=== PATIENT | female | born 1990 | race Caucasian/White ===

== ENCOUNTER 2016-11-14 16:22 | Emergency (ER) | payer BC ==
[~2016-11-14] VITALS: Ht 167.6 cm; Wt 77.1 kg
[~2016-11-14 16:22] MED LIST: ADDERALL30 MG PO; AMOXICILLIN500 MG PO; ATIVAN1 MG PO; AUGMENTIN 875875 MG PO; HYDROCODONE BIT1 T11 PO; MOTRIN600 MG PO; ULTRAM50 MG PO; VALTREX1 GM PO; VICO10300 PO; ZESTRIL,PRINIVI10 MG PO; ZITHROMAX Z PA250 MG PO; ZOFRAN ODT4 MG SL
[2016-11-14 16:28] VITALS: BP 153/88
[2016-11-14] MEDS ORDERED: VALIUM5 MG PO (16:30)
[2016-11-14 16:53] LABS: HEMATOCRIT 40.3 % (37.0-47.0); HEMOGLOBIN 12.8 g/dl (12.0-16.0); MEAN CELL VOLUME 83.3 fl (81.0-99.0); MEAN CORPUSCULAR HGB 26.4 pg (27.0-31.0); MEAN CORPUSCULAR HGB CONC 31.8 g/dl (33.0-37.0); MEAN PLATELET VOLUME 9.7 fl (9.6-12.3); PLATELET COUNT AUTOMATED 533 10*3/uL (130-400); RED BLOOD COUNT 4.84 10*6/uL (4.10-5.10); RED CELL DISTRI WIDTH 15.9 % (0-14.5); WHITE BLOOD COUNT 14.3 10*3/uL (4.8-10.8)
[2016-11-14 17:10] LABS: BILIRUBIN, TOTAL 0.3 mg/dl (0.2-1.0); BUN 14 mg/dl (7-24); CARBON DIOXIDE 22 mmol/L (21-32); CHLORIDE 104 mmol/L (98-107); EST GLOM FILT AFRICAN AMERICAN > 60 ml/min; GLUCOSE 86 mg/dL (65-99); POTASSIUM 3.8 mmol/L (3.5-5.1); SGOT/AST 21 IU/L (3-35); SGPT/ALT 24 U/L (12-78); SODIUM 139 mmol/L (136-145); TOTAL PROTEIN 8.3 gm/dL (6.4-8.2)
[2016-11-14 17:11] LABS: ALKALINE PHOSPHATASE 105 U/L (45-117)
[2016-11-14 17:24] LABS: BASOPHIL # 0.3 10*3/uL (0-0.1); BASOPHILS 2 % (0-1); EOSINOPHIL # 0.7 10*3/uL (0-0.4); EOSINOPHILS 5 % (1-4); LYMPHOCYTE # 1.9 10*3/uL (1.3-4.4); MONOCYTE # 1.9 10*3/uL (0.1-1.0); NEUTROPHIL # 9.6 10*3/uL (2.3-7.9); NEUTROPHILS 67 % (47-73); TOTAL CELLS COUNTED 100 #CELLS
[2016-11-14 17:25] LABS: OVALOCYTES FEW; PLATELET SUFFICIENCY HIGH (NORMAL); POLYCHROMASIA SLIGHT
[2016-11-14 17:26] LABS: HYPOCHROMIA SLIGHT; TARGET CELLS FEW
[2016-11-14] MEDS ORDERED: ULTRAM50 MG PO (17:51)
[2016-11-14] MEDS ORDERED: ZOFRAN ODT4 MG SL (17:51)
[2016-11-14] MEDS ORDERED: TAMIFLU 75MG CA75 MG PO (17:51)
== END 2016-11-14 17:57 | disposition home or self-care (01) ==
LOC: ED 16:22
PROVIDERS: Nurse Practitioner Family
DX: J09.X9 Influenza due to identified novel influenza A virus with other manifestations (principal); H66.91 Otitis media, unspecified, right ear; Z79.899 Other long term (current) drug therapy

== ENCOUNTER → 2017-06-26 | Outpatient (CLI) | payer OTHER ==
[~2017-06-26] MED LIST changes: +TAMIFLU 75MG CA75 MG PO; +VALIUM5 MG PO
[2017-06-26 07:07] LABS: BASO # 0.1 10*3/uL (0.0-0.1); BASO % 0.8 % (0.0-1.0); EOS # 0.2 10*3/uL (0.0-0.4); HEMATOCRIT 35.2 % (37.0-47.0); HEMOGLOBIN 10.9 g/dl (12.0-16.0); LYMPH % 44.9 % (27.0-41.0); MEAN CELL VOLUME 82.8 fl (81.0-99.0); MEAN CORPUSCULAR HGB 25.6 pg (27.0-31.0); MEAN PLATELET VOLUME 9.9 fl (9.6-12.3); MONO # 0.9 10*3/uL (0.1-1.0); MONO % 8.2 % (3.0-9.0); NEUT # 4.9 10*3/uL (2.3-7.9); NEUT % 43.8 % (47.0-73.0); PLATELET COUNT AUTOMATED 659 10*3/uL (130-400); RED BLOOD COUNT 4.25 10*6/uL (4.10-5.10); RED CELL DISTRI WIDTH 16.3 % (0-14.5); WHITE BLOOD COUNT 11.1 10*3/uL (4.8-10.8)
[2017-06-26 07:35] LABS: CHLORIDE 103 mmol/L (98-107); POTASSIUM 3.7 mmol/L (3.5-5.1); SODIUM 137 mmol/L (136-145)
[2017-06-26 07:44] LABS: ALBUMIN 3.5 gm/dl (3.1-4.5); ALKALINE PHOSPHATASE 92 U/L (45-117); BUN 12 mg/dl (7-24); CHOLESTEROL 146 mg/dL (<200); CREATININE 0.55 mg/dL (0.55-1.02); FREE T4 1.22 ng/dl (0.76-1.46); HDL CHOLESTEROL 51 mg/dl (40-60); LDL CHOLESTEROL 80 mg/dL (9-159); SGOT/AST 19 IU/L (3-35); SGPT/ALT 23 U/L (12-78); TRIGLYCERIDES 75 mg/dl (<150); VLDL CHOLESTEROL 15 mg/dL (6-40)
[2017-06-26 07:57] LABS: VITAMIN D, 25-HYDROXY 34.5 ng/mL (30-100)
[2017-06-26 08:00] LABS: TOTAL PROTEIN 8.3 gm/dL (6.4-8.2)
[2017-06-28 14:11] LABS: t-TRANSGLUTAMINASE (tTG) IGA <2 U/mL (0-3)
== END | disposition home or self-care (01) ==
LOC: LAB 06:25
PROVIDERS: Internal Medicine
DX: Z13.21 Encounter for screening for nutritional disorder (principal); Z13.1 Encounter for screening for diabetes mellitus; Z13.220 Encounter for screening for lipoid disorders; R79.89 Other specified abnormal findings of blood chemistry

== ENCOUNTER 2017-09-02 10:31 | Emergency (ER) | payer OTHER ==
[~2017-09-02] VITALS: Ht 165.1 cm; Wt 77.1 kg
[2017-09-02 11:00] VITALS: BP 128/77
[2017-09-02 11:50] LABS: BASO # 0.1 10*3/uL (0.0-0.1); BASO % 1.2 % (0.0-1.0); EOS # 0.2 10*3/uL (0.0-0.4); EOS % 1.7 % (1.0-4.0); HEMATOCRIT 37.1 % (37.0-47.0); LYMPH # 3.8 10*3/uL (1.3-4.4); LYMPH % 31.7 % (27.0-41.0); MEAN CELL VOLUME 80.3 fl (81.0-99.0); MEAN CORPUSCULAR HGB CONC 32.3 g/dl (33.0-37.0); MEAN PLATELET VOLUME 9.2 fl (9.6-12.3); MONO # 1.1 10*3/uL (0.1-1.0); MONO % 8.9 % (3.0-9.0); NEUT # 6.8 10*3/uL (2.3-7.9); NEUT % 56.3 % (47.0-73.0); PLATELET COUNT AUTOMATED 570 10*3/uL (130-400); RED BLOOD COUNT 4.62 10*6/uL (4.10-5.10); RED CELL DISTRI WIDTH 15.5 % (0-14.5)
[2017-09-02 12:05] LABS: ALBUMIN 3.8 gm/dl (3.1-4.5); ALKALINE PHOSPHATASE 100 U/L (45-117); BUN 14 mg/dl (7-24); CHLORIDE 106 mmol/L (98-107); CREATININE 0.63 mg/dL (0.55-1.02); LIPASE 152 U/L (73-393); SGOT/AST 17 IU/L (3-35); SGPT/ALT 24 U/L (12-78); SODIUM 138 mmol/L (136-145); TOTAL PROTEIN 8.6 gm/dL (6.4-8.2)
[2017-09-02 13:14] LABS: BILIRUBIN NEGATIVE (NEGATIVE); BLOOD TRACE-LYSED (NEGATIVE); CLARITY CLEAR (CLEAR); COLOR YELLOW (YELLOW); GLUCOSE NEGATIVE (NEGATIVE); KETONE NEGATIVE (NEGATIVE); LEUKO ESTERASE NEGATIVE (NEGATIVE); NITRITE NEGATIVE (NEGATIVE); UROBILINOGEN 0.2 E.U./dl (0.2-1.0)
[2017-09-02 13:35] LABS: BACTERIA 2+
[2017-09-02] MEDS ORDERED: ZANTAC 150150 MG PO (15:19)
[2017-09-02] MEDS ORDERED: CARAFATE1 G1 PO (15:19)
[2017-09-02] MEDS ORDERED: PROTONIX40 MG PO (15:19)
[2017-09-02] MEDS ORDERED: ZOFRAN4 MG PO (15:19)
== END 2017-09-02 15:22 | disposition home or self-care (01) ==
LOC: ED 10:31
PROVIDERS: Nurse Practitioner Family
DX: R10.84 Generalized abdominal pain (principal); R03.0 Elevated blood-pressure reading, without diagnosis of hypertension; Z79.899 Other long term (current) drug therapy; Z90.49 Acquired absence of other specified parts of digestive tract; Z90.81 Acquired absence of spleen

== ENCOUNTER 2018-03-04 19:42 | Emergency (ER) | payer OTHER ==
[~2018-03-04] VITALS: Ht 165.1 cm; Wt 72.6 kg
[~2018-03-04 19:42] MED LIST changes: +CARAFATE1 G1 PO; +PROTONIX40 MG PO; +ZANTAC 150150 MG PO; +ZOFRAN4 MG PO
[2018-03-04] MEDS ORDERED: ADDERALL 20 MG20 MG PO (20:00)
[2018-03-04] MEDS ORDERED: VISTARIL50 MG PO (20:01)
[2018-03-04] MEDS ORDERED: RIFAMPIN600 MG PO (20:02)
[2018-03-04] MEDS ORDERED: VALTREX500 MG PO (20:02)
[2018-03-04] MEDS ORDERED: XIFAXAN550 MG PO (20:03)
[2018-03-04] MEDS ORDERED: NUVARING VAGIN1 EACH V (20:04)
[2018-03-04 20:40] LABS: BASO # 0.1 10*3/uL (0.0-0.1); BASO % 0.8 % (0.0-1.0); EOS # 0.1 10*3/uL (0.0-0.4); EOS % 0.7 % (1.0-4.0); HEMATOCRIT 34.2 % (37.0-47.0); HEMOGLOBIN 10.5 g/dl (12.0-16.0); LYMPH # 4.6 10*3/uL (1.3-4.4); MEAN CELL VOLUME 78.3 fl (81.0-99.0); MEAN CORPUSCULAR HGB CONC 30.7 g/dl (33.0-37.0); MEAN PLATELET VOLUME 9.5 fl (9.6-12.3); MONO # 1.1 10*3/uL (0.1-1.0); MONO % 9.5 % (3.0-9.0); NEUT # 5.3 10*3/uL (2.3-7.9); NEUT % 47.8 % (47.0-73.0); PLATELET COUNT AUTOMATED 491 10*3/uL (130-400); RED BLOOD COUNT 4.37 10*6/uL (4.10-5.10); RED CELL DISTRI WIDTH 17.7 % (0-14.5); WHITE BLOOD COUNT 11.2 10*3/uL (4.8-10.8)
[2018-03-04 20:55] LABS: ALBUMIN 3.5 gm/dl (3.1-4.5); ALKALINE PHOSPHATASE 89 U/L (45-117); BUN 24 mg/dl (7-24); CHLORIDE 103 mmol/L (98-107); CREATININE 0.71 mg/dL (0.55-1.02); LIPASE 166 U/L (73-393); POTASSIUM 3.6 mmol/L (3.5-5.1); SGOT/AST 14 IU/L (3-35); SGPT/ALT 19 U/L (12-78); SODIUM 138 mmol/L (136-145); TOTAL PROTEIN 7.9 gm/dL (6.4-8.2)
[2018-03-04 21:00] LABS: ACT PARTIAL THROMBO TIME 23.3 SECONDS (20.8-31.5); INTERNATIONAL NORM RATIO 0.9 (2.0-3.5)
[2018-03-04 21:04] LABS: TROPONIN I < 0.015 ng/ml (<0.045)
[2018-03-04 21:06] LABS: BILIRUBIN NEGATIVE (NEGATIVE); BLOOD 1+ (NEGATIVE); CLARITY SL CLOUDY (CLEAR); COLOR YELLOW (YELLOW); GLUCOSE NEGATIVE (NEGATIVE); KETONE NEGATIVE (NEGATIVE); LEUKO ESTERASE NEGATIVE (NEGATIVE); NITRITE NEGATIVE (NEGATIVE); PH 5.5 (5.0-9.0); SPECIFIC GRAVITY >= 1.030 (1.005-1.030); UROBILINOGEN 0.2 E.U./dl (0.2-1.0)
[2018-03-04 21:22] LABS: BACTERIA 1+; EPITHELIAL CELLS TNTC; MUCOUS TRACE
[2018-03-04 23:07] VITALS: BP 135/82
== END 2018-03-04 23:08 | disposition home or self-care (01) ==
LOC: ED 19:42
PROVIDERS: Nurse Practitioner Family
DX: R25.2 Cramp and spasm (principal); F10.10 Alcohol abuse, uncomplicated; Z79.899 Other long term (current) drug therapy; Z90.49 Acquired absence of other specified parts of digestive tract

== ENCOUNTER → 2018-05-06 | Outpatient (CLI) | payer OTHER ==
[~2018-05-06] MED LIST changes: +ADDERALL 20 MG20 MG PO; +NUVARING VAGIN1 EACH V; +RIFAMPIN600 MG PO; +VALTREX500 MG PO; +VISTARIL50 MG PO; +XIFAXAN550 MG PO
== END | disposition home or self-care (01) ==
LOC: US 16:50
DX: Z34.81 Encounter for supervision of other normal pregnancy, first trimester (principal); Z3A.08 8 weeks gestation of pregnancy

== ENCOUNTER → 2018-10-31 | Outpatient (CLI) | payer OTHER | END | disposition home or self-care (01) | LOC: LAB 19:25 | DX: Z34.80 Encounter for supervision of other normal pregnancy, unspecified trimester (principal) ==

== ENCOUNTER 2019-04-13 11:43 | Emergency (ER) | payer OTHER ==
[~2019-04-13] VITALS: Ht 167.6 cm; Wt 81.6 kg
--- NOTE | ~2019-04-13 | EKG ---
[place], [place] ELECTROCARDIOGRAM REPORT NAME: ANDRE RUIZ UNIT #: [id number] ROOM: DOCTOR: EPIPHANY DRAFT REPORT BIRTHDATE: [birth year] [facility] Test Date: 2019-04-13 Test Time: 12:23:30 Pat Name: ANDRE RUIZ Department: ER Room: Gender: F Escrow Processor: Coby Macedo : 1990 Requested By: VALENTE JACOBO DNP Order Number: [id number] Reading MD: Lucina Franco MD Measurements Intervals [place] Rate: 131 P: 70 WV: 135 QRS: 9 QRSD: 100 T: -32 QT: 338 QTc: 499 Interpretive Statements Sinus tachycardia Low voltage, precordial leads Borderline T abnormalities, diffuse leads Prolonged QT interval Electronically Signed On 04-19-2019 6:55:13 PDT by Lucina Franco MD CM:EKGRPT:ELECTROCARDIOGRAM REPORT [id number] VALENTE JACOBO DNP EPIPHANY DRAFT REPORT VALENTE JACOBO DNP
[2019-04-13 12:46] LABS: HEMATOCRIT 43.6 % (37.0-47.0); HEMOGLOBIN 13.9 g/dl (12.0-16.0); MEAN CELL VOLUME 88.3 fl (81.0-99.0); MEAN CORPUSCULAR HGB 28.1 pg (27.0-31.0); MEAN CORPUSCULAR HGB CONC 31.9 g/dl (33.0-37.0); MEAN PLATELET VOLUME 9.7 fl (9.6-12.3); PLATELET COUNT AUTOMATED 526 10*3/uL (130-400); RED BLOOD COUNT 4.94 10*6/uL (4.10-5.10); RED CELL DISTRI WIDTH 14.3 % (0-14.5)
[2019-04-13 12:49] LABS: WHITE BLOOD COUNT 37.7 10*3/uL (4.8-10.8)
[2019-04-13 12:58] LABS: ACT PARTIAL THROMBO TIME 27.9 SECONDS (20.0-32.1); INTERNATIONAL NORM RATIO 0.9 (2.0-3.5)
[2019-04-13 13:00] LABS: ALBUMIN 3.7 gm/dl (3.1-4.5); ALKALINE PHOSPHATASE 142 U/L (45-117); BUN 15 mg/dl (7-24); CHLORIDE 102 mmol/L (98-107); CREATININE 0.81 mg/dL (0.55-1.02); LIPASE 81 U/L (73-393); POTASSIUM 3.8 mmol/L (3.5-5.1); SGOT/AST 14 IU/L (3-35); SGPT/ALT 27 U/L (12-78); SODIUM 136 mmol/L (136-145); TOTAL PROTEIN 8.7 gm/dL (6.4-8.2)
[2019-04-13 13:01] LABS: TROPONIN I < 0.015 ng/ml (<0.045)
[2019-04-13 13:08] LABS: BASOPHILS 1 % (0-1); TOTAL CELLS COUNTED 100 #CELLS
[2019-04-13 13:09] LABS: PLATELET SUFFICIENCY NORMAL (NORMAL); POLYCHROMASIA SLIGHT
[2019-04-13 13:10] LABS: BURR CELLS FEW
[2019-04-13 14:24] LABS: BILIRUBIN NEGATIVE (NEGATIVE); BLOOD NEGATIVE (NEGATIVE); CLARITY CLEAR (CLEAR); COLOR YELLOW (YELLOW); GLUCOSE NEGATIVE (NEGATIVE); KETONE NEGATIVE (NEGATIVE); LEUKO ESTERASE NEGATIVE (NEGATIVE); NITRITE NEGATIVE (NEGATIVE); PH 7.5 (5.0-9.0); SPECIFIC GRAVITY 1.015 (1.005-1.030); UROBILINOGEN 0.2 E.U./dl (0.2-1.0)
[2019-04-13 14:36] LABS: BACTERIA TRACE; MUCOUS 2+
[2019-04-13 17:51] VITALS: BP 115/68
== END 2019-04-13 18:00 | disposition short-term general hospital (02) ==
LOC: ED 11:43
PROVIDERS: Nurse Practitioner Family
DX: A41.9 Sepsis, unspecified organism (principal); J03.00 Acute streptococcal tonsillitis, unspecified; R19.7 Diarrhea, unspecified; H92.03 Otalgia, bilateral; Z79.899 Other long term (current) drug therapy; Z90.49 Acquired absence of other specified parts of digestive tract

== ENCOUNTER 2019-09-01 19:37 | Emergency (ER) | payer OTHER ==
[~2019-09-01] VITALS: Ht 165.1 cm; Wt 81.6 kg
--- NOTE | ~2019-09-01 | EKG ---
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
[2019-09-01 20:00] VITALS: BP 122/77
[2019-09-01 20:27] LABS: HEMATOCRIT 40.9 % (37.0-47.0); HEMOGLOBIN 12.8 g/dl (12.0-16.0); MEAN CORPUSCULAR HGB 27.5 pg (27.0-31.0); MEAN CORPUSCULAR HGB CONC 31.3 g/dl (33.0-37.0); MEAN PLATELET VOLUME 9.7 fl (9.6-12.3); PLATELET COUNT AUTOMATED 512 10*3/uL (130-400); RED BLOOD COUNT 4.65 10*6/uL (4.10-5.10); RED CELL DISTRI WIDTH 13.9 % (0-14.5)
[2019-09-01 20:46] LABS: TOTAL CELLS COUNTED 100 #CELLS
[2019-09-01 20:47] LABS: ALBUMIN 3.7 gm/dl (3.1-4.5); ALKALINE PHOSPHATASE 121 U/L (45-117); BUN 15 mg/dl (7-24); CHLORIDE 106 mmol/L (98-107); CREATININE 0.74 mg/dL (0.55-1.02); PLATELET SUFFICIENCY HIGH (NORMAL); SGOT/AST 13 IU/L (3-35); SGPT/ALT 18 U/L (12-78); SODIUM 137 mmol/L (136-145); TOTAL PROTEIN 8.2 gm/dL (6.4-8.2); TROPONIN I < 0.015 ng/ml (<0.045)
== END 2019-09-01 21:33 | disposition home or self-care (01) ==
LOC: ED 19:37
PROVIDERS: Emergency Medicine Emergency Medical Services
DX: H53.9 Unspecified visual disturbance (principal); R20.2 Paresthesia of skin; R20.0 Anesthesia of skin; Z79.899 Other long term (current) drug therapy

== ENCOUNTER 2019-09-03 03:49 | Emergency (ER) | payer OTHER ==
[~2019-09-03] VITALS: Ht 165.1 cm
--- NOTE | ~2019-09-03 | EKG ---
[place], [place] ELECTROCARDIOGRAM REPORT NAME: ANDRE RUIZ UNIT #: [id number] ROOM: DOCTOR: EPIPHANY DRAFT REPORT BIRTHDATE: [address] 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
[2019-09-03 04:22] LABS: HEMATOCRIT 41.8 % (37.0-47.0); MEAN CELL VOLUME 89.3 fl (81.0-99.0); MEAN CORPUSCULAR HGB 27.8 pg (27.0-31.0); MEAN CORPUSCULAR HGB CONC 31.1 g/dl (33.0-37.0); MEAN PLATELET VOLUME 9.9 fl (9.6-12.3); PLATELET COUNT AUTOMATED 489 10*3/uL (130-400); RED BLOOD COUNT 4.68 10*6/uL (4.10-5.10); RED CELL DISTRI WIDTH 13.8 % (0-14.5); WHITE BLOOD COUNT 15.3 10*3/uL (4.8-10.8)
[2019-09-03 04:37] LABS: ALBUMIN 3.4 gm/dl (3.1-4.5); ALKALINE PHOSPHATASE 126 U/L (45-117); BUN 17 mg/dl (7-24); CHLORIDE 107 mmol/L (98-107); CREATININE 0.75 mg/dL (0.55-1.02); LIPASE 122 U/L (73-393); POTASSIUM 3.4 mmol/L (3.5-5.1); SGOT/AST 12 IU/L (3-35); SGPT/ALT 21 U/L (12-78); SODIUM 140 mmol/L (136-145); TOTAL PROTEIN 7.6 gm/dL (6.4-8.2)
[2019-09-03 04:38] LABS: ACT PARTIAL THROMBO TIME 22.7 SECONDS (20.0-32.1); INTERNATIONAL NORM RATIO 0.9 (2.0-3.5)
[2019-09-03 04:50] LABS: ATYPICAL LYMPHS 1 % (0-0); BASOPHILS 1 % (0-1); BURR CELLS FEW; PLATELET SUFFICIENCY HIGH (NORMAL); TOTAL CELLS COUNTED 100 #CELLS
[2019-09-03 07:36] VITALS: BP 113/63
== END 2019-09-03 08:15 | disposition short-term general hospital (02) ==
LOC: ED 03:49
PROVIDERS: Emergency Medicine Emergency Medical Services
DX: R42 Dizziness and giddiness (principal); R11.10 Vomiting, unspecified; H53.9 Unspecified visual disturbance; Z79.899 Other long term (current) drug therapy

== ENCOUNTER → 2019-09-22 | Outpatient (CLI) | payer OTHER | END | disposition home or self-care (01) | LOC: CT 12:57 | DX: I72.0 Aneurysm of carotid artery (principal) ==

== ENCOUNTER → 2019-12-12 | Outpatient (CLI) | payer OTHER | END | disposition home or self-care (01) | LOC: LAB 08:35 | DX: J98.4 Other disorders of lung (principal) ==

== ENCOUNTER → 2020-01-09 | Outpatient (CLI) | payer OTHER | END | disposition home or self-care (01) | LOC: RESCLI 15:53 | DX: R06.02 Shortness of breath (principal) ==

== ENCOUNTER 2020-06-07 09:19 | Inpatient (IN) | payer OTHER ==
[~2020-06-07] VITALS: Ht 165.1 cm; Wt 88.1 kg
[2020-06-07 09:26] VITALS: BP 129/80
[2020-06-07 09:59] LABS: BASO # 0.1 10*3/uL (0.0-0.1); EOS # 0.1 10*3/uL (0.0-0.4); EOS % 1.5 % (1.0-4.0); HEMATOCRIT 39.5 % (37.0-47.0); LYMPH # 3.4 10*3/uL (1.3-4.4); MEAN CELL VOLUME 85.1 fl (81.0-99.0); MEAN CORPUSCULAR HGB 26.5 pg (27.0-31.0); MEAN CORPUSCULAR HGB CONC 31.1 g/dl (33.0-37.0); MEAN PLATELET VOLUME 9.5 fl (9.6-12.3); MONO # 0.6 10*3/uL (0.1-1.0); MONO % 7.1 % (3.0-9.0); NEUT # 3.6 10*3/uL (2.3-7.9); NEUT % 46.1 % (47.0-73.0); PLATELET COUNT AUTOMATED 522 10*3/uL (130-400); RED BLOOD COUNT 4.64 10*6/uL (4.10-5.10); RED CELL DISTRI WIDTH 15.5 % (0-14.5); WHITE BLOOD COUNT 7.8 10*3/uL (4.8-10.8)
[2020-06-07 10:16] LABS: ALKALINE PHOSPHATASE 102 U/L (45-117); BUN 14 mg/dl (7-24); CHLORIDE 104 mmol/L (98-107); CREATININE 0.59 mg/dL (0.55-1.02); LIPASE 117 U/L (73-393); POTASSIUM 3.9 mmol/L (3.5-5.1); SGOT/AST 11 IU/L (3-35); SGPT/ALT 20 U/L (12-78); SODIUM 137 mmol/L (136-145); TOTAL PROTEIN 7.6 gm/dL (6.4-8.2)
[2020-06-07 10:20] LABS: BETA-HCG, QUANT < 1.0 mIU/mL (1-3)
[2020-06-07 10:26] LABS: BILIRUBIN NEGATIVE (NEGATIVE); BLOOD NEGATIVE (NEGATIVE); CLARITY SL CLOUDY (CLEAR); COLOR YELLOW (YELLOW); GLUCOSE NEGATIVE (NEGATIVE); KETONE NEGATIVE (NEGATIVE); LEUKO ESTERASE NEGATIVE (NEGATIVE); NITRITE NEGATIVE (NEGATIVE); PH 7.5 (5.0-9.0); UROBILINOGEN 0.2 E.U./dl (0.2-1.0)
[2020-06-07 10:39] LABS: BACTERIA 2+
--- NOTE | 2020-06-07 11:30 | NUR ---
PT. RESTING IN BED WITH EYES CLOSED. WILL CONT TO MONITOR. CALL LIGHT IN REACH.
[2020-06-07 12:13] VITALS: BP 137/80
--- NOTE | 2020-06-07 12:21 | NUR ---
PT. RESTING IN BED ON CELL PHONE. WILL CONT TO MONITOR. CALL LIGHT IN REACH.
[2020-06-07 12:30] VITALS: BP 150/85
--- NOTE | 2020-06-07 12:30 | NUR ---
Time: 1230 A 30 year old FEMALE admitted to 5E under services of MIGUEL DOTY MD. Pt. arrived via bed from ER. Chief complaint: RUQ ABD PAIN, CHILLS, NAUSEA. LOIS VICTORIA
--- NOTE | 2020-06-07 13:57 | NUR ---
PATIENT COMPLAINING OF 8/10 RUQ ABD PAIN AT THIS TIME AND REQUESTING PAIN MED. GIVEN DILAUDID PER ORDER. WILL MONITOR FOR EFFECTIVENESS.
[2020-06-07] MEDS ORDERED: EFFEXOR XR37.5 M1 PO (14:03)
[2020-06-07] MEDS ORDERED: XANAX0.5 MG PO (14:03)
[2020-06-07] MEDS ORDERED: INNOPRAN XL80 M2 PO (14:04)
[2020-06-07] MEDS ORDERED: TRAZODONE50 MG PO (14:05)
[2020-06-07] MEDS ORDERED: HYOSCYAMINE0.375 M1 PO (14:05)
[2020-06-07] MEDS ORDERED: VALACYCLOVIR500 M1 PO (14:06)
--- NOTE | 2020-06-07 14:57 | NUR ---
PT STATES THAT DILAUDID WAS EFFECTIVE. RELAXED AT THIS TIME WITH CALL LIGHT IN REACH.
--- NOTE | 2020-06-07 15:10 | NUR ---
PATIENT C/O NAUSEA AT THIS TIME. MEDICATED WITH IV PHENERGAN PER ORDER. WILL MONITOR.
[2020-06-07 16:00] VITALS: BP 95/63
--- NOTE | 2020-06-07 16:10 | NUR ---
PER PATIENT, PHNERGAN HAS BEEN EFFECTIVE. RESTING AT THIS TIME, DENIES FURTHER COMPLAINTS.
[2020-06-07 20:00] VITALS: BP 103/59
--- NOTE | 2020-06-07 21:00 | NUR ---
PT RESTING IN BED. C/O RIGHT UPPER QUAD RADIATING INTO BACK AREA, RATES PAIN 5 ON PAIN SCALE 0-10. MEDICATED WITH DILAUDID IV PER PRN ORDER, SEE EMAR. ALSO C/O NAUSEA WITH MEDICATION. MEDICATED WITH PHENERGAN IV PER PRN ORDER. IVF INFUSING WITH NO PROBLEM. CALL LIGHT IN REACH.
--- NOTE | 2020-06-07 22:00 | NUR ---
PT RESTING IN BED ON RIGHT SIDE, RESP-EASY AND REGULAR. MEDICATION SEEMS TO BE EFFECTIVE. IVF INFUSING WITH NO PROBLEM. CALL LIGHT IN REACH.
[2020-06-08] VITALS: BP 106/63
--- NOTE | 2020-06-08 | NUR ---
PT SLEEPING IN BED. RESP-EASY AND REGULAR. IVF INFUSING WITH NO PROBLEM. CALL LIGHT IN REACH.
--- NOTE | 2020-06-08 01:54 | NUR ---
PT RESTING IN BED WITH EYES CLOSED. AWAKENS EASILY. NO C/O AT THIS TIME. TOLERATING IV ANTIBIOTIC. CALL LIGHT IN REACH.
--- NOTE | 2020-06-08 04:00 | NUR ---
PT RESTING IN BED WITH EYES CLOSED. RESP-EASY AND REGULAR. CALL LIGHT IN REACH.
--- NOTE | 2020-06-08 05:35 | NUR ---
RESTING IN BED WITH EYES CLOSED. RESP-EASY AND REGULAR. IVF INFUSING WITH NO PROBLEM. CALL LIGHT IN REACH.
[2020-06-08 06:51] LABS: HEMATOCRIT 39.2 % (37.0-47.0); MEAN CELL VOLUME 86.9 fl (81.0-99.0); MEAN CORPUSCULAR HGB 26.6 pg (27.0-31.0); MEAN CORPUSCULAR HGB CONC 30.6 g/dl (33.0-37.0); MEAN PLATELET VOLUME 10.2 fl (9.6-12.3); PLATELET COUNT AUTOMATED 468 10*3/uL (130-400); RED BLOOD COUNT 4.51 10*6/uL (4.10-5.10); RED CELL DISTRI WIDTH 15.4 % (0-14.5); WHITE BLOOD COUNT 7.5 10*3/uL (4.8-10.8)
[2020-06-08 07:11] LABS: ALBUMIN 2.6 gm/dl (3.1-4.5); BUN 15 mg/dl (7-24); CHLORIDE 110 mmol/L (98-107); CREATININE 0.57 mg/dL (0.55-1.02); POTASSIUM 4.4 mmol/L (3.5-5.1); SGOT/AST 13 IU/L (3-35); SGPT/ALT 18 U/L (12-78); SODIUM 141 mmol/L (136-145)
[2020-06-08 07:13] LABS: ALKALINE PHOSPHATASE 80 U/L (45-117); TOTAL PROTEIN 6.3 gm/dL (6.4-8.2)
[2020-06-08 07:31] LABS: BASOPHILS 1 % (0-1); TOTAL CELLS COUNTED 100 #CELLS
[2020-06-08 07:34] LABS: PLATELET SUFFICIENCY HIGH (NORMAL)
[2020-06-08 08:00] VITALS: BP 125/75
--- NOTE | 2020-06-08 08:13 | NUR ---
PT REQUESTED AND WAS MEDICATED WITH DILAUDID IV FOR C/O 810 ABDOMINAL PAIN. CALL LIGHT IN REACH. WILL MONITOR
--- NOTE | 2020-06-08 08:30 | NUR ---
DR FLETCHER IN TO SEE PT.
--- NOTE | 2020-06-08 09:00 | NUR ---
MEDICATIONS EFFECTIVE PER PT. CALL LIGHT IN REACH. WILL MONITOR
--- NOTE | 2020-06-08 09:00 | NUR ---
Shear Grinder Operator in to talk to patient. Patient states lives at home with her and children. There are 1 steps in the home. Physician: Dr. Eduardo Peralta [facility]acy: [facility] Home health services: none Patient's level of ADLs: INDEPENDENT Patient has working utilities: yes DME: none Follow-up physician's appointment after d/c: she prefers to make her own follow up appt after discharge Does patient want to access PORTAL?: no Discharge plan discussed with patient. She lives at home with her family. She is independent in her ADLs and ambulation. She works. Discussed home health care services and she declines. CM will continue to follow for any discharge planning needs. She states Dr. Calzada is going to do her jose surgery tomorrow. When medically stable she will be discharged to home. She states her will provide transportation on discharge. MCKINLEY PATTERSON
--- NOTE | 2020-06-08 09:15 | NUR ---
DR NUNEZ IN TO SEE PT. SURGERY FOR TOMORROW AM
[2020-06-08 12:00] VITALS: BP 127/77
--- NOTE | 2020-06-08 13:44 | NUR ---
PT REQUESTED AND WAS MEIDCATED WITH DILAUDID IV FOR C/O ABDOMINAL PAIN AND PHENEGRAN IV FOR C/O NAUSEA. IVF INFUSING PER MAINOR. CALL LIGHT IN REACH. WILL MONITOR.
--- NOTE | 2020-06-08 14:40 | NUR ---
MEDICATIONS EFFECTIVE PER PT. CALL LIGHT IN REACH. WILL MONITOR
[2020-06-08 16:00] VITALS: BP 116/66
--- NOTE | 2020-06-08 17:50 | NUR ---
PT REQUESTED AND WAS MEDICATED WITH DILAUDID IV FOR C/O ABDOMINAL PAIN. CALL LIGHT IN REACH. WILL MONITOR
--- NOTE | 2020-06-08 18:40 | NUR ---
MEDICATION EFFECTIVE PER PT. CALL LIGHT IN REACH. WILL MONITOR
--- NOTE | 2020-06-08 19:45 | NUR ---
PT RESTING IN BED, NAUSIATED. PT HAD EMESIS. MEDICATED WITH PHENERGAN PER PRN ORDER, SEE EMAR. IVF INFUSING WITH NO PROBLEM. ALSO C/O PAIN IN RIGHT SIDE/UNDER RIB AREA RADIATES IN BACK UP INTO SHOULDER BLADE AREA. RATES PAIN 7 ON PAIN SCALE 0-10. MEDICATED WITH TORADOL IV PER PRN ORDER, SEE EMAR. CALL LIGHT IN REACH.
[2020-06-08 20:00] VITALS: BP 128/80
--- NOTE | 2020-06-08 20:06 | NUR ---
CALLED DR. FLETCHER MADE AWARE PT STATES SHE HAD EATEN AND PAIN IS WORSE AGAIN, DILAUDID NOT EFFECTIVE OR TORADOL. DR. FLETCHER INCREASED DILAUDID.
--- NOTE | 2020-06-08 20:28 | NUR ---
PT MEDICATED WITH DILAUDID IV PER PRN FOR C/O PAIN RATES PAIN 7 ON PAIN SCALE 0-10. SEE EMAR. CALL LIGHT IN REACH.
--- NOTE | 2020-06-08 21:20 | NUR ---
IV started right antecubital with #22 angiocath after 1 attempts. The IV site was prepped with Chloraprep. Heparin lock attached. IV solution NS infusing at 70 cc/hr. Sterile dressing applied. Patient tolerated precedure well. Procedure performed according to [facility] policy & procedure. LUIS DANIEL LEROY R1
--- NOTE | 2020-06-08 21:25 | NUR ---
PT SITTING UP IN BED. STATES PAIN MEDICATION HELPED SOME, RATES PAIN 4 ON PAIN SCALE 0-10. CALL LIGHT IN REACH.
--- NOTE | 2020-06-08 23:30 | NUR ---
PT RESTING IN BED. REQUESTING ANXIETY MEDICATION. MEDICATED WITH XANAX PO PER PRN ORDER, SEE EMAR. CALL LIGHT IN REACH. SEE SHIFT ASSESSMENT.
[2020-06-09] VITALS (9 sets, daily range): BP systolic 113–132; BP diastolic 59–85
--- NOTE | 2020-06-09 00:30 | NUR ---
RESTING IN BED WITH EYES CLOSED. MEDICATION SEEMS TO BE EFFECTIVE. CALL LIGHT IN REACH.
--- NOTE | 2020-06-09 02:43 | NUR ---
PT [id number] IN BED. MEDICATED WITH PHENERGAN IV FOR NAUSEA, SEE EMAR. ALSO DILAUDID IV PER PRN ORDER FOR C/O RIGHT FLANK UP THE BACK PER PT. RATES PAIN 5 ON PAIN SCALE 0-10. CALL LIGHT IN REACH.
--- NOTE | 2020-06-09 03:40 | NUR ---
RESTING IN BED WITH EYES CLOSED, RESP-EASY AND REGULAR. MEDICATIONS SEEM TO BE EFFECTIVE. CALL LIGHT IN REACH.
--- NOTE | 2020-06-09 04:30 | NUR ---
RESTING IN BED. NO C/O AT THIS TIME. CALL LIGHT IN REACH.
--- NOTE | 2020-06-09 05:45 | NUR ---
PT REQUESTING PAIN MEDICATION. EDUCATED ON BEING TOO SOON. SHE IS OK WITH THAT. CALL LIGHT IN REACH.
[2020-06-09 06:13] LABS: BASO # 0.1 10*3/uL (0.0-0.1); BASO % 0.7 % (0.0-1.0); EOS # 0.2 10*3/uL (0.0-0.4); EOS % 2.6 % (1.0-4.0); HEMATOCRIT 38.7 % (37.0-47.0); LYMPH # 3.7 10*3/uL (1.3-4.4); LYMPH % 45.2 % (27.0-41.0); MEAN CELL VOLUME 86.2 fl (81.0-99.0); MEAN CORPUSCULAR HGB 26.5 pg (27.0-31.0); MEAN CORPUSCULAR HGB CONC 30.7 g/dl (33.0-37.0); MEAN PLATELET VOLUME 9.9 fl (9.6-12.3); MONO # 0.8 10*3/uL (0.1-1.0); MONO % 9.2 % (3.0-9.0); NEUT # 3.4 10*3/uL (2.3-7.9); NEUT % 42.2 % (47.0-73.0); PLATELET COUNT AUTOMATED 477 10*3/uL (130-400); RED BLOOD COUNT 4.49 10*6/uL (4.10-5.10); RED CELL DISTRI WIDTH 15.3 % (0-14.5); WHITE BLOOD COUNT 8.1 10*3/uL (4.8-10.8)
[2020-06-09 06:17] LABS: ALBUMIN 2.7 gm/dl (3.1-4.5); BUN 9 mg/dl (7-24); CHLORIDE 110 mmol/L (98-107); CREATININE 0.56 mg/dL (0.55-1.02); POTASSIUM 3.6 mmol/L (3.5-5.1); SGOT/AST 11 IU/L (3-35); SGPT/ALT 19 U/L (12-78); SODIUM 142 mmol/L (136-145)
[2020-06-09 06:18] LABS: ALKALINE PHOSPHATASE 92 U/L (45-117); TOTAL PROTEIN 6.6 gm/dL (6.4-8.2)
--- NOTE | 2020-06-09 06:55 | NUR ---
PT MEDICATED WITH DILAUDID IV PER PRN ORDER, SEE EMAR. FOR C/O R FLANK/BACK PAIN, RATES PAIN 5 ON PAIN SCALE 0-10. IVF INFUSING WITH NO PROBLEM. CALL LIGHT IN REACH.
--- NOTE | 2020-06-09 07:43 | NUR ---
Pt off unit to surgery.
[2020-06-09] MEDS ORDERED: ZOFRAN4 MG PO (10:03)
[2020-06-09] MEDS ORDERED: COLACE100 MG PO (10:03)
[2020-06-09] MEDS ORDERED: NORCO 5-325 TA1 EACH PO ×2 (10:03)
[2020-06-09] MEDS ORDERED: PERCOCET 5-3251 EACH PO (10:43)
[2020-06-09] MEDS ORDERED: Percocet 325 MG1 TAB PO (10:46)
--- NOTE | 2020-06-09 10:55 | NUR ---
PT RETURNS FROM SURGERY. PT REQUESTED AND WAS MEDICATED WITH PHENEGRAN IV FOR C/O NAUSEA. IVF INFUSING PER ORDERS. 4 LAP SITES INTACT WITH GLUE AND OPSITE. CALL LIGHT IN REACH. WILL MONITOR
--- NOTE | 2020-06-09 11:45 | NUR ---
PHENEGRAN NOT EFFECTIVE PER PT. WILL MONITOR
--- NOTE | 2020-06-09 12:15 | NUR ---
DR FLETCHER CALLED RE: PT STILL C/O NAUSEA. ORDERS RECEIVED.
--- NOTE | 2020-06-09 12:29 | NUR ---
PT MEDICATED WITH ZOFRAN IV FOR C/O NAUSEA. IVF INFUSING PER ORDERS. CALL LIGHT IN REACH. WILL MONITOR
--- NOTE | 2020-06-09 12:30 | NUR ---
PT REQUESTED AND WAS MEDICATED WITH DILAUDID FOR C/O ABDOMINAL PAIN. CALL LIGHT IN REACH. WILL MONITOR
--- NOTE | 2020-06-09 13:20 | NUR ---
MEDICATIONS EFFECTIVE PER PT. CALL LIGHT IN REACH. WILL MONITOR
--- NOTE | 2020-06-09 14:11 | NUR ---
PT REQUESTED AND WAS MEDICATED WITH PERCOCET FOR C/O ABDOMINAL PAIN. CALL LIGHT IN REACH. WILL MONITOR
--- NOTE | 2020-06-09 15:00 | NUR ---
MEDICATION EFFECTIVE PER PT.
--- NOTE | 2020-06-09 16:23 | NUR ---
PT REQUESTED AND WAS MEDICATED WITH PHENEGRAN IV FOR C/O NAUSEA AND DILAUDID IV FOR C/O ABDOMINAL PAIN. CALL LIGHT IN REACH. WILL MONITOR
--- NOTE | 2020-06-09 17:15 | NUR ---
MEDICATION APPEARS EFFECTIVE, PT RESTING WITH EYES CLOSED. CALL LIGHT IN REACH. WILL MONITOR
--- NOTE | 2020-06-09 17:52 | NUR ---
PT AMBULATING IN HALLWAY.
--- NOTE | 2020-06-09 18:26 | NUR ---
PT REQUESTED AND WAS MEDICATED WITH TORADOL FOR C/O ABDOMINAL PAIN. CALL LIGHT IN REACH. WILL MONITOR
--- NOTE | 2020-06-09 19:12 | NUR ---
MEDICATION EFFECTIVE PER PT. CALL LIGHT IN REACH. WILL MONITOR
--- NOTE | 2020-06-09 20:03 | NUR ---
SPOKE TO REGARDING PATIENT'S CONTINUED COMPLAINTS OF PAIN. DISCUSSED CURRENT MEDICATION ORDERS FOR 1 MG IV DILAUDID Q4H PRN, 15 MG IV TORADOL Q6H PRN, AND PO PERCOCET Q6H PRN. AWARE 1 MG IV DILAUDID JUST GIVEN AND PATIENT WONDERING IF DOSE INCREASE WAS POSSIBLE FROM 1 MG TO 2 MG. NEW ORDER RECEIVED FOR 1 MG DILAUDID X1 DOSE NOW. ALSO DISCUSSED PATIENT'S REQUEST FOR SUPPOSITORY. PT HAS HAD NO BM SINCE WEDNESDAY 06/06 AND HAS BEEN GASSY SINCE SURGERY THIS AM. VIKRAM BS HEARD X 4 QUADS. NEW ORDER RECEIVED FOR DULCOLAX SUPPOSITORY.
--- NOTE | 2020-06-09 20:16 | NUR ---
1 MG IV DILAUDID ADMINISTERED SLOWLY PER ONE TIME ORDER. DULCOLAX SUPPOSITORY ALSO GIVEN. WILL MONITOR. CALL LIGHT IN REACH. DISCUSSED MEDICATION SCHEDULE WITH PT. VERBALIZES UNDERSTANDING.
--- NOTE | 2020-06-09 21:05 | NUR ---
EARLIER MEDICATION EFFECTIVE PER PT. WILL MONITOR.
--- NOTE | 2020-06-09 22:27 | NUR ---
IV PHENERGAN ADMINISTERED FOR C/O NAUSEA. PO PERCOCET ADMINISTERED FOR ABD PAIN RATED 5/10. PO XANAX ADMINISTERED FOR ANXIETY. WILL MONITOR. CALL LIGHT IN REACH.
--- NOTE | 2020-06-09 23:20 | NUR ---
EARLIER MEDICATIONS APPEAR EFFECTIVE. PT ASLEEP IN BED, EASILY AROUSABLE. WILL MONITOR. CALL LIGHT IN REACH.
[2020-06-10] VITALS: BP 116/67
--- NOTE | 2020-06-10 01:22 | NUR ---
IV DILAUDID ADMINISTERED PER ORDER FOR C/O PAIN IN ABD RATED 5/10. WILL MONITOR. CALL LIGHT IN REACH. IVF/IV ABX INFUSING PER ORDER.
--- NOTE | 2020-06-10 02:02 | NUR ---
PT STATES EARLIER MEDICATION EFFECTIVE. PT UP AMBULATING IN [place]. STATES SHE PASSED GAS AND HAD SMALL BM.
--- NOTE | 2020-06-10 03:09 | NUR ---
MEDICATED WITH PRN TORADOL FOR C/O ABD PAIN RATED 5/10 ON A 0/10 PAIN SCALE. WILL MONITOR
--- NOTE | 2020-06-10 03:15 | NUR ---
MEDICATED WITH PRN TRAZADONE FOR C/O INSOMNIA. WILL MONITOR
--- NOTE | 2020-06-10 04:18 | NUR ---
IV PHENERGAN GIVEN PER ORDER FOR C/O NAUSEA. PO PERCOCET ALSO GIVEN FOR C/O ABD PAIN/CRAMPING RATED 5/10. WILL MONITOR. CALL LIGHT IN REACH.
[2020-06-10 06:30] LABS: HEMATOCRIT 33.1 % (37.0-47.0); MEAN CELL VOLUME 86.6 fl (81.0-99.0); MEAN CORPUSCULAR HGB 27.2 pg (27.0-31.0); MEAN CORPUSCULAR HGB CONC 31.4 g/dl (33.0-37.0); MEAN PLATELET VOLUME 9.8 fl (9.6-12.3); PLATELET COUNT AUTOMATED 446 10*3/uL (130-400); RED BLOOD COUNT 3.82 10*6/uL (4.10-5.10); RED CELL DISTRI WIDTH 15.4 % (0-14.5); WHITE BLOOD COUNT 17.7 10*3/uL (4.8-10.8)
[2020-06-10 06:31] LABS: ALBUMIN 2.6 gm/dl (3.1-4.5); ALKALINE PHOSPHATASE 83 U/L (45-117); BUN 7 mg/dl (7-24); CHLORIDE 110 mmol/L (98-107); CREATININE 0.56 mg/dL (0.55-1.02); POTASSIUM 3.7 mmol/L (3.5-5.1); SGOT/AST 26 IU/L (3-35); SGPT/ALT 38 U/L (12-78); SODIUM 139 mmol/L (136-145); TOTAL PROTEIN 6.7 gm/dL (6.4-8.2)
[2020-06-10 06:58] LABS: BURR CELLS FEW; PLATELET SUFFICIENCY HIGH (NORMAL); ROULEAUX SLIGHT; TARGET CELLS FEW; TOTAL CELLS COUNTED 100 #CELLS
[2020-06-10 08:00] VITALS: BP 120/70
--- NOTE | 2020-06-10 08:19 | NUR ---
PT REQUESTED AND WAS MEDICATED WITH DILAUDID FOR C/O ABDOMINAL PAIN. IVF INFUSING PER ORDERS. RESP EASY AND NONLABORED ON RA. PT STATES PRODUCTIVE COUGH AT TIMES. PT ENCOURAGED TO DEEP BREATH AND COUGH AND AMBULATE TOLERATED. CALL LIGHT IN REACH. WILL MONITOR
--- NOTE | 2020-06-10 09:15 | NUR ---
DILAUDID EFFECTIVE PER PT. CALL LIGHT IN REACH. WILL MONITOR
--- NOTE | 2020-06-10 09:30 | NUR ---
Patient ambulating in hallway. When medically stable she will be discharged to home. Discussed home health care services and she declines. CM will continue to follow for any discharge planning needs.
--- NOTE | 2020-06-10 10:13 | NUR ---
PT STILL C/O ABDOMINAL PAIN. OK PER DR CARTAGENA OK GIVE DILAUDID 1MG EARLY FOR PT C/O ABDOMINAL PAIN. PT ALSO MEDICATED WITH TORADOL FOR PAIN AND PHENEGRAN AND NAUSEA. CALL LIGHT IN REACH. WILL MONITOR
--- NOTE | 2020-06-10 11:05 | NUR ---
PT STATES MEDICATIONS EFFECTIVE. CALL LIGHT IN REACH. WILL MONITOR
--- NOTE | 2020-06-10 11:08 | NUR ---
PT BACK FROM RADIOLOGY.
--- NOTE | 2020-06-10 12:29 | NUR ---
PT INSTRUCTED ON USE OF IS. PT DEMONSTRATED PROPER TECHNIQUE. ACHIEVED 1500 CC GOOD EFFORT. IS AT BEDSIDE FOR Q4 HR USE.
--- NOTE | 2020-06-10 13:01 | NUR ---
PT REQUESTED AND WAS MEDICVATED WITH PERCOCET FOR C/O ABDOMINAL PAIN.
[2020-06-10] MEDS ORDERED: KETOROLAC10 MG PO (13:35)
[2020-06-10] MEDS ORDERED: PHENERGAN25 M3 PO (13:35)
[2020-06-10] MEDS ORDERED: AUGMENTIN 875-875 MG PO (13:47)
--- NOTE | 2020-06-10 13:47 | NUR ---
MEDICATION EFFECTIVE PER PT. CALL LIGHT IN REACH. WILL MONITOR
--- NOTE | 2020-06-10 13:55 | NUR ---
Discharge instructions reviewed with patient/family. Patient receptive and verbalizes understanding. Follow-up care arranged. Written instructions given to patient/family. MARCE BUENO
== END 2020-06-10 13:55 | disposition home or self-care (01) | DRG 418 ==
LOC: ED 09:19 → EDHOLD 11:44 → 5E 11:44
PROVIDERS: Nurse Practitioner Family; Surgery; ADMIT Internal Medicine; ATTEND Internal Medicine
PROC: 0FT44ZZ Resection of Gallbladder, Percutaneous Endoscopic Approach (ICD-10-PCS; principal; 2020-06-09)
DX: K80.12 Calculus of gallbladder with acute and chronic cholecystitis without obstruction (principal); E44.1 Mild protein-calorie malnutrition; F33.0 Major depressive disorder, recurrent, mild; F41.1 Generalized anxiety disorder; F90.9 Attention-deficit hyperactivity disorder, unspecified type; K58.9 Irritable bowel syndrome, unspecified; F51.04 Psychophysiologic insomnia; B00.9 Herpesviral infection, unspecified; Z68.29 Body mass index [BMI] 29.0-29.9, adult

== ENCOUNTER → 2020-09-24 | Outpatient (CLI) | payer OTHER ==
[~2020-09-24] MED LIST changes: +AUGMENTIN 875-875 MG PO; +COLACE100 MG PO; +EFFEXOR XR37.5 M1 PO; +HYOSCYAMINE0.375 M1 PO; +INNOPRAN XL80 M2 PO; +KETOROLAC10 MG PO; +NORCO 5-325 TA1 EACH PO; +PERCOCET 5-3251 EACH PO; +PHENERGAN25 M3 PO; +Percocet 325 MG1 TAB PO; +TRAZODONE50 MG PO; +VALACYCLOVIR500 M1 PO; +XANAX0.5 MG PO
== END | disposition home or self-care (01) ==
LOC: US 12:27
PROVIDERS: ATTEND Nurse Practitioner Women's Health
DX: Z34.81 Encounter for supervision of other normal pregnancy, first trimester (principal); Z3A.01 Less than 8 weeks gestation of pregnancy; N88.8 Other specified noninflammatory disorders of cervix uteri

== ENCOUNTER → 2020-10-07 | Outpatient (CLI) | payer OTHER | END | disposition home or self-care (01) | LOC: US 10-03 15:00 | PROVIDERS: ATTEND Nurse Practitioner Women's Health | DX: O34.81 Maternal care for other abnormalities of pelvic organs, first trimester (principal); N83.12 Corpus luteum cyst of left ovary; Z3A.08 8 weeks gestation of pregnancy ==

== ENCOUNTER → 2020-11-28 | Outpatient (CLI) | payer OTHER ==
[2020-11-28 20:38] LABS: HEMATOCRIT 40.7 % (37.0-47.0); MEAN CELL VOLUME 85.1 fl (81.0-99.0); MEAN CORPUSCULAR HGB 27.6 pg (27.0-31.0); MEAN CORPUSCULAR HGB CONC 32.4 g/dl (33.0-37.0); MEAN PLATELET VOLUME 10.1 fl (9.6-12.3); PLATELET COUNT AUTOMATED 538 10*3/uL (130-400); RED BLOOD COUNT 4.78 10*6/uL (4.10-5.10); RED CELL DISTRI WIDTH 14.9 % (0-14.5); WHITE BLOOD COUNT 13.6 10*3/uL (4.8-10.8)
[2020-11-28 20:50] LABS: URINE AMPHETAMINES < 1000 (1000ng/ml); URINE BARBITURATES < 200 (200ng/ml); URINE BENZODIAZEPINES < 200 (200ng/ml); URINE CANNABINOIDS (THC) < 50 (50ng/ml); URINE COCAINE < 300 (300ng/ml); URINE METHADONE < 300 (300ng/ml); URINE OPIATES < 300 (300ng/ml)
[2020-11-28 20:51] LABS: URINE PHENCYCLIDINE < 25 (25ng/ml)
[2020-11-28 20:57] LABS: ATYPICAL LYMPHS 2 % (0-0); BURR CELLS FEW; PLATELET SUFFICIENCY HIGH (NORMAL); TOTAL CELLS COUNTED 100 #CELLS
[2020-11-28 21:07] LABS: ALBUMIN 3.3 gm/dl (3.1-4.5); ALKALINE PHOSPHATASE 94 U/L (45-117); BUN 18 mg/dl (7-24); CHLORIDE 106 mmol/L (98-107); CREATININE 0.55 mg/dL (0.55-1.02); POTASSIUM 3.7 mmol/L (3.5-5.1); SGOT/AST 12 IU/L (3-35); SGPT/ALT 19 U/L (12-78); SODIUM 137 mmol/L (136-145); TOTAL PROTEIN 8.2 gm/dL (6.4-8.2)
[2020-11-30 03:06] LABS: HEP B CORE AB, IGM Negative (Negative); HEPATITIS B SURFACE AG Negative (Negative); HEPATITIS C VIRUS ANTIBODY <0.1 s/co (0.0-0.9)
== END | disposition home or self-care (01) ==
LOC: LAB 19:24
PROVIDERS: ATTEND Nurse Practitioner Women's Health
DX: Z34.82 Encounter for supervision of other normal pregnancy, second trimester (principal); Z3A.14 14 weeks gestation of pregnancy

== ENCOUNTER → 2020-12-26 | Outpatient (CLI) | payer OTHER ==
[2020-12-26 09:21] LABS: BASO # 0.1 10*3/uL (0.0-0.1); BASO % 0.4 % (0.0-1.0); EOS # 0.2 10*3/uL (0.0-0.4); EOS % 1.3 % (1.0-4.0); HEMATOCRIT 40.3 % (37.0-47.0); LYMPH # 2.9 10*3/uL (1.3-4.4); LYMPH % 24.3 % (27.0-41.0); MEAN CORPUSCULAR HGB 27.9 pg (27.0-31.0); MEAN PLATELET VOLUME 9.5 fl (9.6-12.3); MONO # 0.8 10*3/uL (0.1-1.0); MONO % 6.3 % (3.0-9.0); NEUT % 67.3 % (47.0-73.0); PLATELET COUNT AUTOMATED 475 10*3/uL (130-400); RED BLOOD COUNT 4.63 10*6/uL (4.10-5.10); RED CELL DISTRI WIDTH 14.9 % (0-14.5); WHITE BLOOD COUNT 11.9 10*3/uL (4.8-10.8)
== END | disposition home or self-care (01) ==
LOC: LAB 08:10 → US 08:10
PROVIDERS: ATTEND Obstetrics & Gynecology
DX: Z34.82 Encounter for supervision of other normal pregnancy, second trimester (principal); Z3A.20 20 weeks gestation of pregnancy

== ENCOUNTER 2021-01-21 10:31 | Emergency (ER) | payer OTHER ==
[~2021-01-21] VITALS: Ht 167.6 cm; Wt 86.2 kg
[2021-01-21 10:40] VITALS: BP 134/71
[2021-01-21 11:48] LABS: BASO # 0.1 10*3/uL (0.0-0.1); BASO % 0.3 % (0.0-1.0); EOS # 0.1 10*3/uL (0.0-0.4); EOS % 0.2 % (1.0-4.0); HEMATOCRIT 40.9 % (37.0-47.0); LYMPH # 1.9 10*3/uL (1.3-4.4); LYMPH % 8.4 % (27.0-41.0); MEAN CELL VOLUME 89.5 fl (81.0-99.0); MEAN CORPUSCULAR HGB 28.7 pg (27.0-31.0); MEAN PLATELET VOLUME 9.6 fl (9.6-12.3); MONO # 1.2 10*3/uL (0.1-1.0); MONO % 5.1 % (3.0-9.0); NEUT # 19.3 10*3/uL (2.3-7.9); NEUT % 85.4 % (47.0-73.0); PLATELET COUNT AUTOMATED 496 10*3/uL (130-400); RED BLOOD COUNT 4.57 10*6/uL (4.10-5.10); RED CELL DISTRI WIDTH 15.4 % (0-14.5); WHITE BLOOD COUNT 22.6 10*3/uL (4.8-10.8)
[2021-01-21 11:56] LABS: BILIRUBIN Negative (Negative); BLOOD Negative (Negative); CLARITY Clear (Clear); COLOR Yellow (Yellow); GLUCOSE Negative (Negative); KETONE 3+ (Negative); LEUKO ESTERASE Trace (Negative); NITRITE Negative (Negative); PH 5.5 (4.5-8.0); SPECIFIC GRAVITY 1.025 (1.001-1.030); UROBILINOGEN 0.2 E.U./dl (0.0-1.0)
[2021-01-21 12:04] LABS: ALBUMIN 3.1 gm/dl (3.1-4.5); ALKALINE PHOSPHATASE 100 U/L (45-117); BUN 12 mg/dl (7-24); CHLORIDE 109 mmol/L (98-107); CREATININE 0.53 mg/dL (0.55-1.02); POTASSIUM 3.6 mmol/L (3.5-5.1); SGOT/AST 8 IU/L (3-35); SGPT/ALT 17 U/L (12-78); SODIUM 136 mmol/L (136-145); TOTAL PROTEIN 7.9 gm/dL (6.4-8.2)
[2021-01-21 12:20] LABS: BACTERIA 4+; EPITHELIAL CELLS 16-20; MUCOUS 4+; RBC 0-2 rbc/hpf (0-2); WBC 0-2 wbc/hpf (0-5)
== END 2021-01-21 17:45 | disposition home or self-care (01) ==
LOC: ED 10:31
PROVIDERS: Emergency Medicine
DX: K52.9 Noninfective gastroenteritis and colitis, unspecified (principal); F41.9 Anxiety disorder, unspecified; Z79.899 Other long term (current) drug therapy; Z90.49 Acquired absence of other specified parts of digestive tract; Z98.890 Other specified postprocedural states

== ENCOUNTER → 2021-02-28 | Outpatient (CLI) | payer OTHER | END | disposition home or self-care (01) | LOC: US 09:28 | PROVIDERS: ATTEND Nurse Practitioner Women's Health | DX: Z34.83 Encounter for supervision of other normal pregnancy, third trimester (principal); Z3A.29 29 weeks gestation of pregnancy ==

== ENCOUNTER 2021-05-12 12:19 | Emergency (ER) | payer OTHER ==
[~2021-05-12] VITALS: Ht 165.1 cm; Wt 90.7 kg
[2021-05-12 13:01] LABS: HEMATOCRIT 37.8 % (37.0-47.0); MEAN CELL VOLUME 89.8 fl (81.0-99.0); MEAN CORPUSCULAR HGB 27.8 pg (27.0-31.0); MEAN PLATELET VOLUME 9.6 fl (9.6-12.3); PLATELET COUNT AUTOMATED 540 10*3/uL (130-400); RED BLOOD COUNT 4.21 10*6/uL (4.10-5.10); RED CELL DISTRI WIDTH 14.3 % (0-14.5); WHITE BLOOD COUNT 14.1 10*3/uL (4.8-10.8)
[2021-05-12 13:17] LABS: ALBUMIN 2.8 gm/dl (3.1-4.5); ALKALINE PHOSPHATASE 130 U/L (45-117); BUN 12 mg/dl (7-24); CHLORIDE 111 mmol/L (98-107); CREATININE 0.46 mg/dL (0.55-1.02); LIPASE 81 U/L (73-393); POTASSIUM 4.2 mmol/L (3.5-5.1); SGOT/AST 17 IU/L (3-35); SGPT/ALT 26 U/L (12-78); SODIUM 140 mmol/L (136-145); TOTAL PROTEIN 7.2 gm/dL (6.4-8.2)
[2021-05-12 13:22] LABS: ATYPICAL LYMPHS 2 % (0-0); PLATELET SUFFICIENCY HIGH (NORMAL); TOTAL CELLS COUNTED 100 #CELLS
[2021-05-12 13:31] LABS: TROPONIN I < 0.015 ng/ml (<0.045)
[2021-05-12 13:39] LABS: BILIRUBIN Negative (Negative); BLOOD 3+ (Negative); CLARITY Clear (Clear); COLOR Yellow (Yellow); GLUCOSE Negative (Negative); KETONE Negative (Negative); LEUKO ESTERASE Trace (Negative); NITRITE Negative (Negative); SPECIFIC GRAVITY <= 1.005 (1.001-1.030); UROBILINOGEN 0.2 E.U./dl (0.0-1.0)
[2021-05-12 14:00] LABS: BACTERIA 1+; EPITHELIAL CELLS TNTC; WBC 0-2 wbc/hpf (0-5)
[2021-05-12 14:45] VITALS: BP 125/74
== END 2021-05-12 14:56 | disposition home or self-care (01) ==
LOC: ED 12:19
PROVIDERS: Emergency Medicine
DX: O16.5 Unspecified maternal hypertension, complicating the puerperium (principal); R07.89 Other chest pain; R06.02 Shortness of breath; Z79.2 Long term (current) use of antibiotics; Z79.899 Other long term (current) drug therapy; Z90.49 Acquired absence of other specified parts of digestive tract; Z90.89 Acquired absence of other organs

== ENCOUNTER 2021-07-31 22:14 | Emergency (ER) | payer OTHER ==
[~2021-07-31] VITALS: Ht 170.1 cm; Wt 90.7 kg
[2021-07-31 22:38] VITALS: BP 145/76
== END 2021-07-31 23:39 | disposition left against medical advice (07) ==
LOC: ED 22:14
DX: R10.13 Epigastric pain (principal); Z79.899 Other long term (current) drug therapy

== ENCOUNTER → 2022-08-18 | Outpatient (CLI) | payer BC | END | disposition home or self-care (01) | LOC: US 09:30 | PROVIDERS: ATTEND Nurse Practitioner Women's Health | DX: D25.1 Intramural leiomyoma of uterus (principal); N83.202 Unspecified ovarian cyst, left side ==

== ENCOUNTER 2022-11-23 18:32 | Emergency (ER) | payer BC ==
[~2022-11-23] VITALS: Ht 167.6 cm; Wt 81.6 kg
[2022-11-23 18:48] VITALS: BP 126/86
[2022-11-23 19:28] LABS: BASO # 0.1 10*3/uL (0.0-0.1); BASO % 1.2 % (0.0-1.0); EOS # 0.1 10*3/uL (0.0-0.4); EOS % 1.4 % (1.0-4.0); HEMATOCRIT 42.4 % (37.0-47.0); LYMPH # 4.7 10*3/uL (1.3-4.4); LYMPH % 49.6 % (27.0-41.0); MEAN CELL VOLUME 85.5 fl (81.0-99.0); MEAN CORPUSCULAR HGB 27.6 pg (27.0-31.0); MEAN CORPUSCULAR HGB CONC 32.3 g/dl (33.0-37.0); MEAN PLATELET VOLUME 10.1 fl (9.6-12.3); MONO # 0.9 10*3/uL (0.1-1.0); MONO % 9.8 % (3.0-9.0); NEUT # 3.5 10*3/uL (2.3-7.9); NEUT % 37.8 % (47.0-73.0); PLATELET COUNT AUTOMATED 478 10*3/uL (130-400); RED BLOOD COUNT 4.96 10*6/uL (4.10-5.10); RED CELL DISTRI WIDTH 14.1 % (0-14.5); WHITE BLOOD COUNT 9.4 10*3/uL (4.8-10.8)
[2022-11-23 19:39] LABS: ACT PARTIAL THROMBO TIME 29.6 SECONDS (20.0-32.1)
[2022-11-23 19:44] LABS: ALKALINE PHOSPHATASE 83 U/L (46-116); BUN 13 mg/dl (9-23); CHLORIDE 103 mmol/L (98-107); POTASSIUM 3.8 mmol/L (3.4-5.1); SGPT/ALT 57 U/L (10-49); TOTAL PROTEIN 7.7 gm/dL (6.0-8.0)
== END 2022-11-23 22:33 | disposition home or self-care (01) ==
LOC: ED 18:32
PROVIDERS: Internal Medicine
DX: R07.89 Other chest pain (principal); Z90.49 Acquired absence of other specified parts of digestive tract; Z98.890 Other specified postprocedural states

== ENCOUNTER → 2022-12-01 | Outpatient (CLI) | payer BC ==
[2022-12-01 13:44] LABS: ALKALINE PHOSPHATASE 88 U/L (46-116); BUN 9 mg/dl (9-23); CHLORIDE 100 mmol/L (98-107); CHOLESTEROL 133 mg/dL (<200); FREE T4 1.28 ng/dl (0.89-1.76); LDL CHOLESTEROL 72 mg/dL (9-159); POTASSIUM 3.6 mmol/L (3.4-5.1); SGPT/ALT 49 U/L (10-49); THYROID STIM HORMONE (HS) 0.953 uIU/ml (0.550-4.780); TOTAL PROTEIN 8.5 gm/dL (6.0-8.0); TRIGLYCERIDES 66 mg/dl (<150); VITAMIN D, 25-HYDROXY 28.2 ng/mL (30-100)
== END | disposition home or self-care (01) ==
LOC: LAB 12:26
PROVIDERS: ATTEND Internal Medicine
DX: R74.01 Elevation of levels of liver transaminase levels (principal); R79.89 Other specified abnormal findings of blood chemistry; R53.81 Other malaise; E55.9 Vitamin D deficiency, unspecified; E03.9 Hypothyroidism, unspecified; D51.9 Vitamin B12 deficiency anemia, unspecified; D52.9 Folate deficiency anemia, unspecified; Z13.0 Encounter for screening for diseases of the blood and blood-forming organs and certain disorders involving the immune mechanism; Z13.1 Encounter for screening for diabetes mellitus; Z13.21 Encounter for screening for nutritional disorder; Z13.220 Encounter for screening for lipoid disorders; Z13.228 Encounter for screening for other metabolic disorders; Z13.6 Encounter for screening for cardiovascular disorders; Z13.89 Encounter for screening for other disorder

== ENCOUNTER → 2023-02-11 | Outpatient (CLI) | payer BC ==
[2023-02-11 14:51] LABS: BASO # 0.1 10*3/uL (0.0-0.1); EOS # 0.2 10*3/uL (0.0-0.4); EOS % 1.5 % (1.0-4.0); HEMATOCRIT 43.1 % (37.0-47.0); LYMPH % 40.5 % (27.0-41.0); MEAN CORPUSCULAR HGB 27.8 pg (27.0-31.0); MEAN CORPUSCULAR HGB CONC 31.6 g/dl (33.0-37.0); MEAN PLATELET VOLUME 9.6 fl (9.6-12.3); MONO # 0.7 10*3/uL (0.1-1.0); MONO % 7.3 % (3.0-9.0); NEUT # 4.9 10*3/uL (2.3-7.9); NEUT % 49.5 % (47.0-73.0); PLATELET COUNT AUTOMATED 576 10*3/uL (130-400); RED CELL DISTRI WIDTH 14.7 % (0-14.5); WHITE BLOOD COUNT 9.8 10*3/uL (4.8-10.8)
[2023-02-11 15:17] LABS: ALKALINE PHOSPHATASE 83 U/L (46-116); BUN 9 mg/dl (9-23); CHLORIDE 102 mmol/L (98-107); CHOLESTEROL 197 mg/dL (<200); FREE T4 1.15 ng/dl (0.89-1.76); LDL CHOLESTEROL 119 mg/dL (9-159); POTASSIUM 3.5 mmol/L (3.4-5.1); SGPT/ALT 24 U/L (10-49); THYROID STIM HORMONE (HS) 1.053 uIU/ml (0.550-4.780); TOTAL PROTEIN 8.4 gm/dL (6.0-8.0); TRIGLYCERIDES 107 mg/dl (<150); VITAMIN D, 25-HYDROXY 62.4 ng/mL (30-100)
== END | disposition home or self-care (01) ==
LOC: LAB 14:14
PROVIDERS: ATTEND Internal Medicine
DX: I10 Essential (primary) hypertension (principal); E11.9 Type 2 diabetes mellitus without complications; E78.2 Mixed hyperlipidemia; E55.9 Vitamin D deficiency, unspecified

== ENCOUNTER 2023-07-17 05:04 | Emergency (ER) | payer BC ==
[~2023-07-17] VITALS: Ht 165.1 cm; Wt 65.8 kg
[2023-07-17 06:00] LABS: HEMATOCRIT 37.2 % (37.0-47.0); MEAN CELL VOLUME 85.5 fl (81.0-99.0); MEAN CORPUSCULAR HGB 28.7 pg (27.0-31.0); MEAN CORPUSCULAR HGB CONC 33.6 g/dl (33.0-37.0); MEAN PLATELET VOLUME 9.8 fl (9.6-12.3); PLATELET COUNT AUTOMATED 464 10*3/uL (130-400); RED BLOOD COUNT 4.35 10*6/uL (4.10-5.10); RED CELL DISTRI WIDTH 13.6 % (0-14.5); WHITE BLOOD COUNT 8.9 10*3/uL (4.8-10.8)
[2023-07-17 06:01] LABS: ALKALINE PHOSPHATASE 63 U/L (46-116); BUN 12 mg/dl (9-23); CHLORIDE 108 mmol/L (98-107); MANUAL DIFF REFLEX YES; POTASSIUM 3.5 mmol/L (3.4-5.1); SGPT/ALT 8 U/L (10-49); TOTAL PROTEIN 7.3 gm/dL (6.0-8.0)
[2023-07-17 06:29] LABS: BASOPHILS 2 % (0-1); PLATELET SUFFICIENCY HIGH (NORMAL); TOTAL CELLS COUNTED 100 #CELLS
[2023-07-17 06:30] LABS: ACANTHOCYTES FEW; BURR CELLS FEW; OVALOCYTES FEW
[2023-07-17 07:57] VITALS: BP 118/74
== END 2023-07-17 08:22 | disposition home or self-care (01) ==
LOC: ED 05:04
PROVIDERS: Emergency Medicine
DX: R00.2 Palpitations (principal); T50.905A Adverse effect of unspecified drugs, medicaments and biological substances, initial encounter; Z88.5 Allergy status to narcotic agent; Z88.8 Allergy status to other drugs, medicaments and biological substances; Z79.899 Other long term (current) drug therapy; Z90.49 Acquired absence of other specified parts of digestive tract; Y92.89 Other specified places as the place of occurrence of the external cause

== ENCOUNTER → 2023-07-20 | Outpatient (CLI) | payer BC ==
[2023-07-20 14:25] LABS: BASO # 0.1 10*3/uL (0.0-0.1); BASO % 0.9 % (0.0-1.0); EOS # 0.1 10*3/uL (0.0-0.4); EOS % 1.9 % (1.0-4.0); HEMATOCRIT 39.6 % (37.0-47.0); LYMPH # 2.8 10*3/uL (1.3-4.4); LYMPH % 42.2 % (27.0-41.0); MEAN CELL VOLUME 86.8 fl (81.0-99.0); MEAN CORPUSCULAR HGB 28.3 pg (27.0-31.0); MEAN CORPUSCULAR HGB CONC 32.6 g/dl (33.0-37.0); MONO # 0.5 10*3/uL (0.1-1.0); MONO % 7.7 % (3.0-9.0); NEUT # 3.2 10*3/uL (2.3-7.9); NEUT % 47.2 % (47.0-73.0); PLATELET COUNT AUTOMATED 484 10*3/uL (130-400); RED BLOOD COUNT 4.56 10*6/uL (4.10-5.10); RED CELL DISTRI WIDTH 13.6 % (0-14.5); WHITE BLOOD COUNT 6.7 10*3/uL (4.8-10.8)
[2023-07-20 14:53] LABS: ALKALINE PHOSPHATASE 57 U/L (46-116); BUN 11 mg/dl (9-23); CHLORIDE 104 mmol/L (98-107); CHOLESTEROL 152 mg/dL (<200); FREE T4 1.19 ng/dl (0.89-1.76); LDL CHOLESTEROL 87 mg/dL (9-159); SGPT/ALT 9 U/L (10-49); TOTAL PROTEIN 7.8 gm/dL (6.0-8.0); TRIGLYCERIDES 52 mg/dl (<150); VITAMIN D, 25-HYDROXY 52.7 ng/mL (30-100)
== END ==
LOC: LAB 13:41
PROVIDERS: ATTEND Internal Medicine
DX: Z13.0 Encounter for screening for diseases of the blood and blood-forming organs and certain disorders involving the immune mechanism (principal); Z13.1 Encounter for screening for diabetes mellitus; Z13.21 Encounter for screening for nutritional disorder; Z13.220 Encounter for screening for lipoid disorders; Z13.228 Encounter for screening for other metabolic disorders; Z13.29 Encounter for screening for other suspected endocrine disorder; Z13.6 Encounter for screening for cardiovascular disorders; Z13.89 Encounter for screening for other disorder; Z13.9 Encounter for screening, unspecified; I10 Essential (primary) hypertension; F33.0 Major depressive disorder, recurrent, mild; F33.1 Major depressive disorder, recurrent, moderate

== ENCOUNTER → 2023-08-09 | Outpatient (CLI) | payer BC | END | disposition home or self-care (01) | LOC: LAB 12:12 | PROVIDERS: ATTEND Internal Medicine | DX: Z13.21 Encounter for screening for nutritional disorder (principal); Z13.0 Encounter for screening for diseases of the blood and blood-forming organs and certain disorders involving the immune mechanism; Z13.1 Encounter for screening for diabetes mellitus; Z13.220 Encounter for screening for lipoid disorders; Z13.228 Encounter for screening for other metabolic disorders; Z13.29 Encounter for screening for other suspected endocrine disorder; Z13.6 Encounter for screening for cardiovascular disorders; Z13.89 Encounter for screening for other disorder; Z13.9 Encounter for screening, unspecified; N39.0 Urinary tract infection, site not specified ==

== ENCOUNTER → 2025-05-08 | Outpatient (CLI) | payer BC ==
[2025-05-08 07:36] LABS: BASO # 0.1 10*3/uL (0.0-0.1); BASO % 1.0 % (0.0-1.0); EOS # 0.2 10*3/uL (0.0-0.4); EOS % 1.9 % (1.0-4.0); MEAN CELL VOLUME 87.5 fl (81.0-99.0); MEAN CORPUSCULAR HGB 26.7 pg (27.0-31.0); MEAN PLATELET VOLUME 9.5 fl (9.6-12.3); MONO # 1.0 10*3/uL (0.1-1.0); MONO % 10.8 % (3.0-9.0); NEUT # 2.9 10*3/uL (2.3-7.9); NEUT % 32.0 % (47.0-73.0); NUCLEATED RED BLOOD CELL 0.0 % (0.0-0.0); NUCLEATED RED BLOOD CELL 0.0 10*3/uL (0.0-0.0); PLATELET COUNT AUTOMATED 449 10*3/uL (130-400); RED CELL DISTRI WIDTH 15.0 % (0-14.5)
[2025-05-08 08:00] LABS: BUN 11 mg/dl (9-23); FREE T4 1.14 ng/dl (0.89-1.76); LDL CHOLESTEROL 73 mg/dL (9-159)
[2025-05-08 08:03] LABS: SGPT/ALT < 7 U/L (5-49)
[2025-05-08 08:26] LABS: VITAMIN D, 25-HYDROXY 42.1 ng/mL (30-100)
== END | disposition home or self-care (01) ==
LOC: LAB 07:04
PROVIDERS: ATTEND Internal Medicine
DX: I10 Essential (primary) hypertension (principal); E55.9 Vitamin D deficiency, unspecified; E53.9 Vitamin B deficiency, unspecified; R73.9 Hyperglycemia, unspecified